=== PATIENT | female | born 1975 | race Hispanic/Latino ===

== ENCOUNTER 2020-11-16 09:19 | Outpatient (CLI) | payer SELFPAY ==
[2020-11-16 11:30] LABS: #Eosinphils 0.1 10x3/uL (0.0-0.5); #Monocytes 0.6 10x3/uL (0.0-1.1); #Neutrophils 5.8 10x3/uL (1.5-8.4); %Basophils 0.5 % (0.0-2.0); %Lymphocytes 21.1 % (18.0-47.0); %Monocytes 7.6 % (0.0-10.0); %Neutrophils 69.2 % (40.0-75.0); Hemoglobin 14.2 g/dL (12.0-15.5); Mean Corpuscular HGB CONC 34.5 g/dL (32.0-36.0); Mean Corpuscular Hemoglobin 32.8 pg (27.0-33.0); Mean Corpuscular Volume 95.2 fl (81.6-98.3); Mean Platelet Volume 10.8 fl (7.4-10.4); Platelet Count 248 10x3/uL (150-450); RBC Distribution Width 12.3 % (11.5-14.5); Red Blood Cell (RBC) Count 4.33 10x6/uL (3.90-5.03); White Blood Cell (WBC) Count 8.4 10x3/uL (3.5-10.5)
[2020-11-17 17:01] LABS: SARS-CoV-2 PCR by NAA Not Detected (NotDetected)
== END 2020-11-16 09:20 | disposition home or self-care (01) ==
LOC: LABBT 09:19
PROVIDERS: ATTEND Orthopaedic Surgery
DX: Z01.812 Encounter for preprocedural laboratory examination (principal); S83.241A Other tear of medial meniscus, current injury, right knee, initial encounter; Z20.822 Contact with and (suspected) exposure to COVID-19
CPT/HCPCS: 85025; U0003; U0005

== ENCOUNTER 2022-05-13 08:55 | Outpatient (CLI) | payer BC ==
[~2022-05-13 08:55] MED LIST: Iopamidol 370 76% 100 ML VIAL ONE
== END 2022-05-13 08:56 | disposition home or self-care (01) ==
LOC: CT 08:55
PROVIDERS: ATTEND Internal Medicine
DX: C79.51 Secondary malignant neoplasm of bone (principal); M48.061 Spinal stenosis, lumbar region without neurogenic claudication; I70.90 Unspecified atherosclerosis; G95.9 Disease of spinal cord, unspecified; Z90.89 Acquired absence of other organs
CPT/HCPCS: 71260; 74177; 78306; A9503; Q9967

== ENCOUNTER 2022-05-23 10:55 | Outpatient (CLI) | payer BC ==
[2022-05-23 11:59] LABS: Hemoglobin 13.8 g/dL (12.0-15.5); Mean Corpuscular HGB CONC 35.4 g/dL (32.0-36.0); Mean Corpuscular Hemoglobin 33.3 pg (27.0-33.0); Mean Platelet Volume 10.4 fl (7.4-10.4); Platelet Count 233 10x3/uL (150-450); RBC Distribution Width 12.1 % (11.5-14.5); Red Blood Cell (RBC) Count 4.15 10x6/uL (3.90-5.03); White Blood Cell (WBC) Count 7.6 10x3/uL (3.5-10.5)
[2022-05-23 12:29] LABS: Anion Gap 15 mmol/L (10-20); BUN (Urea Nitrogen) 13 mg/dL (7.0-18.7); Calc. Creatinine Clearance 0 mL/min (70-130); Carbon Dioxide 24 mmol/L (22-29); Chloride 99 mmol/L (98-107); Estimated GFR 87; Glucose 159 mg/dL (70-105); Potassium 3.9 mmol/L (3.5-5.1); Sodium 134 mmol/L (136-145)
== END 2022-05-23 10:56 | disposition home or self-care (01) ==
LOC: LABBT 10:55
PROVIDERS: ATTEND Neurological Surgery
DX: Z01.818 Encounter for other preprocedural examination (principal); M84.48XA Pathological fracture, other site, initial encounter for fracture
CPT/HCPCS: 80048; 85027; 93005; 93010

== ENCOUNTER 2022-05-26 08:39 | Inpatient (IN) | payer BC ==
[2022-05-23 12:03] VITALS: BMI 40.3
[2022-05-26 11:44] LABS: SARS-CoV-2 NAA Rapid Test Not Detected (NotDetected)
[2022-05-26] MEDS ORDERED: Morphine 2 MG/ML VIAL ONE ×2 (12:33→21:04)
[2022-05-26] MEDS ORDERED: Vancomycin 1 GM VIAL ONE (12:34)
[2022-05-26] MEDS ORDERED: fentaNYL PF 100 MCG/2 ML SYRINGE ONE (12:38)
[2022-05-26] MEDS ORDERED: Lidocaine 2% 6 ML SYR ONE (12:39)
[2022-05-26] MEDS ORDERED: CEFAZOLIN 2 GM VIAL ONE ×2 (12:44→22:03)
[2022-05-26] MEDS ORDERED: Sodium Chloride 0.9% 100 ML ONE ×2 (12:48→22:04)
[2022-05-26] MEDS ORDERED: NEOSTIGMINE 3 MG/3 ML SYR 3 MG/3 ML SYRINGE ONE (12:53)
[2022-05-26] MEDS ORDERED: Rocuronium Bromide 10 MG/ML (10ML VIAL) ONE (12:53)
[2022-05-26] MEDS ORDERED: Ondansetron PF 4 MG/2 ML Vial ONE ×2 (12:53→20:27)
[2022-05-26] MEDS ORDERED: Labetalol HCl 100 MG/20 ML VIAL ONE (12:53)
[2022-05-26] MEDS ORDERED: Glycopyrrolate 0.2 MG/ML 5 ML SYRINGE ONE (12:53)
[2022-05-26] MEDS ORDERED: PROPOFOL 200 MG/20 ML VIAL ONE (12:53)
[2022-05-26] MEDS ORDERED: Dexamethasone 20 MG/5 ML VIAL ONE (12:53)
[2022-05-26] MEDS ORDERED: HYDROmorphone 2 MG/ML VIAL ONE ×2 (13:27→14:25)
[2022-05-26] MEDS ORDERED: HYDROmorphone 2 MG/ML VIAL SLOW IVP PRN (14:05)
[2022-05-26] MEDS ORDERED: Ondansetron HCl/PF 4 MG/2 ML Vial IVP PRN (14:05)
[2022-05-26] MEDS ORDERED: Promethazine HCl 25 MG/ML VIAL IM PRN (14:05)
[2022-05-26] MEDS ORDERED: traMADol HCl 50 MG TAB PO PRN (14:29)
[2022-05-26] MEDS ORDERED: diphenhydrAMINE 25 MG CAP PO PRN (14:29)
[2022-05-26] MEDS ORDERED: Ondansetron PF 4 MG/2 ML Vial IVP PRN (14:29)
[2022-05-26] MEDS ORDERED: Promethazine 25 MG TAB PO PRN (14:29)
[2022-05-26] MEDS ORDERED: Acetaminophen 325 MG TAB PO PRN (14:29)
[2022-05-26] MEDS ORDERED: Milk Of Magnesia 30 ML UDCUP PO PRN (14:29)
[2022-05-26] MEDS ORDERED: Mag-Al 1200 mg/1200 mg/30 ML UDCUP PO PRN (14:29)
[2022-05-26] MEDS ORDERED: Cyclobenzaprine 10 MG TAB PO PRN (14:29)
[2022-05-26] MEDS ORDERED: Fentanyl 100 MCG/2 ML VIAL ONE (14:58)
[2022-05-26] MEDS: HYDROcodone/Acetaminophen 10/325 mg Tablet PO PRN (16:33)
[2022-05-26] MEDS ORDERED: HYDROcodone/Acetaminophen 10/325 mg Tablet ONE (16:35)
[2022-05-26] MEDS: Sodium Chloride 0.9% 1,000 ML IV SCH (16:57)
[2022-05-26] MEDS ORDERED: metFORMIN 500 MG TAB PO SCH (17:00)
[2022-05-26] MEDS: Morphine 2 MG/ML VIAL SLOW IVP PRN (21:02)
[2022-05-26] MEDS: CEFAZOLIN 2 GM in Sodium Chloride 0.9% 100 ML IVPB SCH (22:33)
[2022-05-27] MEDS ORDERED: HumaLOG 300 UNITS/3 ML VIAL SC PRN (00:27)
[2022-05-27] MEDS ORDERED: Dextrose 50% Abboject 50 ML SYRINGE SLOW IVP PRN (00:27)
[2022-05-27] MEDS ORDERED: Dextrose 5% in Water 1,000 ML IV PRN (00:27)
[2022-05-27] MEDS: Morphine 2 MG/ML VIAL SLOW IVP PRN ×3 (01:02→09:44)
[2022-05-27] MEDS ORDERED: Morphine 2 MG/ML VIAL ONE ×3 (01:03→09:40)
[2022-05-27] MEDS ORDERED: HYDROcodone/Acetaminophen 10/325 mg Tablet ONE ×2 (03:26→09:46)
[2022-05-27] MEDS: HYDROcodone/Acetaminophen 10/325 mg Tablet PO PRN ×3 (03:26→18:16)
[2022-05-27] MEDS ORDERED: CEFAZOLIN 2 GM VIAL ONE (04:10)
[2022-05-27] MEDS ORDERED: Sodium Chloride 0.9% 100 ML ONE (04:10)
[2022-05-27 04:43] LABS: #Lymphocytes 1.3 thou/uL (1.20-3.40); #Monocytes 0.9 thou/uL (0.11-0.59); #Neutrophils 11.4 thou/uL (1.40-6.50); %Basophils 0.1 % (0.0-1.0); %Eosinophils 0.1 % (0.0-10.0); %Lymphocytes 9.7 % (21.0-51.0); %Monocytes 6.7 % (0.0-10.0); %Neutrophils 83.4 % (42.0-75.0); Hemoglobin 12.3 g/dL (12.0-16.0); Mean Corpuscular HGB CONC 35.3 g/dL (32.0-36.0); Mean Corpuscular Hemoglobin 34.9 pg (27.0-31.0); Mean Platelet Volume 8.2 fL (7.4-10.4); Platelet Count 209 10x3/uL (130-400); RBC Distribution Width 11.7 % (11.5-14.5); Red Blood Cell (RBC) Count 3.53 mill/uL (4.20-5.40); White Blood Cell (WBC) Count 13.7 10x3/uL (4.8-10.8)
[2022-05-27 05:05] LABS: Anion Gap 13 mmol/L (10-20); BUN (Urea Nitrogen) 14 mg/dL (7.0-18.7); Calc. Creatinine Clearance 142 mL/min (70-130); Calcium 8.8 mg/dL (7.8-10.44); Carbon Dioxide 22 mmol/L (22-29); Chloride 101 mmol/L (98-107); Estimated GFR 89; Glucose 162 mg/dL (70-105); Potassium 4.1 mmol/L (3.5-5.1); Sodium 132 mmol/L (136-145)
[2022-05-27] MEDS: CEFAZOLIN 2 GM in Sodium Chloride 0.9% 100 ML IVPB SCH ×3 (05:14→22:27)
[2022-05-27] MEDS ORDERED: Insulin Regular 300 UNITS/3 ML VIAL ONE (05:24)
[2022-05-27] MEDS: HumaLOG 300 UNITS/3 ML VIAL SC PRN ×3 (06:00→18:16)
[2022-05-27] MEDS: Sodium Chloride 0.9% 1,000 ML IV SCH ×2 (07:12→19:05)
[2022-05-27] MEDS ORDERED: Cyclobenzaprine 10 MG TAB ONE (08:05)
[2022-05-27] MEDS: Lisinopril/Hydrochlorothiazide 10 mg/12.5 mg Tablet PO SCH (08:20)
[2022-05-27] MEDS: Sertraline 100 MG TAB PO SCH (08:21)
[2022-05-28] MEDS: Sodium Chloride 0.9% 1,000 ML IV SCH ×2 (04:57→22:47)
[2022-05-28] MEDS: CEFAZOLIN 2 GM in Sodium Chloride 0.9% 100 ML IVPB SCH ×3 (04:58→22:39)
[2022-05-28] MEDS: HYDROcodone/Acetaminophen 10/325 mg Tablet PO PRN ×3 (07:35→18:47)
[2022-05-28 07:40] LABS: #Basophils 0.1 thou/uL (0.0-0.2); #Eosinphils 0.2 thou/uL (0.0-0.7); #Lymphocytes 3.7 thou/uL (1.20-3.40); #Neutrophils 6.3 thou/uL (1.40-6.50); %Basophils 0.5 % (0.0-1.0); %Eosinophils 1.7 % (0.0-10.0); %Lymphocytes 32.7 % (21.0-51.0); %Monocytes 9.2 % (0.0-10.0); %Neutrophils 55.9 % (42.0-75.0); Hemoglobin 12.8 g/dL (12.0-16.0); Mean Corpuscular HGB CONC 34.2 g/dL (32.0-36.0); Mean Corpuscular Hemoglobin 34.4 pg (27.0-31.0); Mean Platelet Volume 8.2 fL (7.4-10.4); Platelet Count 217 10x3/uL (130-400); RBC Distribution Width 11.8 % (11.5-14.5); Red Blood Cell (RBC) Count 3.71 mill/uL (4.20-5.40); White Blood Cell (WBC) Count 11.2 10x3/uL (4.8-10.8)
[2022-05-28 07:50] LABS: Anion Gap 13 mmol/L (10-20); BUN (Urea Nitrogen) 9 mg/dL (7.0-18.7); Calc. Creatinine Clearance 151 mL/min (70-130); Calcium 8.8 mg/dL (7.8-10.44); Carbon Dioxide 23 mmol/L (22-29); Chloride 102 mmol/L (98-107); Estimated GFR 97; Glucose 146 mg/dL (70-105); Magnesium 1.7 mg/dL (1.6-2.6); Potassium 4.1 mmol/L (3.5-5.1); Sodium 134 mmol/L (136-145)
[2022-05-28] MEDS: Sertraline 100 MG TAB PO SCH (09:40)
[2022-05-28] MEDS: Lisinopril/Hydrochlorothiazide 10 mg/12.5 mg Tablet PO SCH (09:42)
[2022-05-28] MEDS: Morphine 2 MG/ML VIAL SLOW IVP PRN (09:48)
[2022-05-28] MEDS ORDERED: Fioricet 325/50/40 mg Tablet PO PRN (09:50)
[2022-05-29] MEDS: HYDROcodone/Acetaminophen 10/325 mg Tablet PO PRN ×2 (03:09→08:36)
[2022-05-29] MEDS: CEFAZOLIN 2 GM in Sodium Chloride 0.9% 100 ML IVPB SCH (05:26)
[2022-05-29] MEDS ORDERED: Polyethylene Glycol 3350 17 GM Packet PO PRN (08:26)
[2022-05-29] MEDS ORDERED: Bisacodyl 10 MG SUPP PR SCH (08:30)
[2022-05-29] MEDS: Sertraline 100 MG TAB PO SCH (08:37)
[2022-05-29] MEDS: Lisinopril/Hydrochlorothiazide 10 mg/12.5 mg Tablet PO SCH (08:37)
[2022-05-29] MEDS ORDERED: Polyethylene Glycol 3350 17 GM Packet PO SCH (09:00)
[2022-05-29 09:12] VITALS: TEMP 97.7
[2022-05-29 13:48] VITALS: BP 92/60
== END 2022-05-29 14:02 | disposition home or self-care (01) | DRG 517 ==
LOC: SDC 08:39 → EDSTATUS 11:00 → PACU-TCU 05-27 01:37 → SURG A 05-27 12:13
PROVIDERS: ADMIT Neurological Surgery; ATTEND Neurological Surgery
PROC: 01NB0ZZ Release Lumbar Nerve, Open Approach (ICD-10-PCS; principal; 2022-05-26)
DX: D49.2 Neoplasm of unspecified behavior of bone, soft tissue, and skin (principal); Z20.822 Contact with and (suspected) exposure to COVID-19; I10 Essential (primary) hypertension; F10.10 Alcohol abuse, uncomplicated; E11.9 Type 2 diabetes mellitus without complications; R33.9 Retention of urine, unspecified; Z79.84 Long term (current) use of oral hypoglycemic drugs; Z79.899 Other long term (current) drug therapy
CPT/HCPCS: 36415; 36416; 80048; 83735; 85025; 88305; 88341; 88342; C1713; C1776; J1100; J1170; J1815; J2272; J2405; J2704; J3010; J3370; J3490; U0002

== ENCOUNTER 2022-06-06 18:54 | Emergency (ER) | payer BC ==
[2022-06-06 21:29] LABS: Bacteria/HPF None Seen HPF (None Seen); Bilirubin Negative (Negative); Blood, Urine 3+ (Negative); Clarity Turbid (Clear); Glucose, Urine (Dipstick) Normal (Negative); Ketone, Urine Negative (Negative); Leukocyte 500 Leu/uL (Negative); Nitrite 1+ (Negative); Protein, Urine (Dipstick) 30 mg/dL (Neg-Trace); Specific Gravity, Urine 1.004 (1.002-1.036); Squamous Epithelial 0-3 HPF (0-3); Transitional Epithelial 0-3 HPF (None Seen); Urobilinogen Normal mg/dL (Less than 2); WBC/HPF Greater than 50 HPF (0-3); pH, Urine 6.5 (5.0-9.0)
[2022-06-06 22:07] LABS: INR-International Normal Ratio 1.1; PTT 30.3 sec (22.9-36.1); Prothrombin Time 14.4 sec (12.0-14.7)
[2022-06-06] MEDS ORDERED: Lidocaine 1% PF 5 ML VIAL ONE (22:07)
[2022-06-06] MEDS ORDERED: cefTRIAXone\\ROCEPHIN 1 GM VIAL ONE (22:07)
[2022-06-06 22:13] LABS: #Basophils 0.1 thou/uL (0.0-0.2); #Eosinphils 0.5 thou/uL (0.0-0.7); #Lymphocytes 2.9 thou/uL (1.20-3.40); #Monocytes 0.9 thou/uL (0.11-0.59); #Neutrophils 8.7 thou/uL (1.40-6.50); %Basophils 0.6 % (0.0-1.0); %Eosinophils 3.5 % (0.0-10.0); %Lymphocytes 21.9 % (21.0-51.0); %Monocytes 7.2 % (0.0-10.0); %Neutrophils 66.8 % (42.0-75.0); Hemoglobin 13.7 g/dL (12.0-16.0); Mean Corpuscular HGB CONC 35.5 g/dL (32.0-36.0); Mean Corpuscular Hemoglobin 34.5 pg (27.0-31.0); Mean Corpuscular Volume 97.1 fl (78.0-98.0); Mean Platelet Volume 7.9 fL (7.4-10.4); Platelet Count 353 10x3/uL (130-400); RBC Distribution Width 11.4 % (11.5-14.5); Red Blood Cell (RBC) Count 3.96 mill/uL (4.20-5.40)
[2022-06-06 22:15] LABS: ALT (SGPT) 49 U/L (8-55); AST (SGOT) 54 U/L (5-34); Albumin 4.2 g/dL (3.5-5.0); Alkaline Phosphatase 84 U/L (40-110); Anion Gap 13 mmol/L (10-20); BUN (Urea Nitrogen) 11 mg/dL (7.0-18.7); Bilirubin, Total 0.6 mg/dL (0.2-1.2); Calc. Creatinine Clearance 0 mL/min (70-130); Calcium 10.3 mg/dL (7.8-10.44); Carbon Dioxide 26 mmol/L (22-29); Chloride 98 mmol/L (98-107); Estimated GFR 80; Globulin 4.2 g/dL (2.4-3.5); Glucose 134 mg/dL (70-105); Lipase 14 U/L (8-78); Potassium 3.9 mmol/L (3.5-5.1); Protein, Total 8.4 g/dL (6.0-8.3); Sodium 133 mmol/L (136-145)
== END 2022-06-06 23:02 | disposition home or self-care (01) ==
LOC: ERS 18:54
DX: N39.0 Urinary tract infection, site not specified (principal); I10 Essential (primary) hypertension; F17.210 Nicotine dependence, cigarettes, uncomplicated
CPT/HCPCS: 36415; 80053; 81003; 81015; 83605; 83690; 85025; 85610; 85730; 96372; 99283; J0696

== ENCOUNTER 2022-06-19 14:52 | Inpatient (IN) | payer BC ==
[2022-06-19] MEDS ORDERED: Ondansetron PF 4 MG/2 ML Vial SLOW IVP PRN (16:19)
[2022-06-19] MEDS ORDERED: diphenhydrAMINE 25 MG CAP PO PRN (16:30)
[2022-06-19] MEDS ORDERED: Promethazine HCl 12.5 MG SUPP PR PRN (16:30)
[2022-06-19] MEDS ORDERED: Milk Of Magnesia 30 ML UDCUP PO PRN (16:30)
[2022-06-19] MEDS ORDERED: diphenhydrAMINE 50 MG/ML VIAL IVP PRN (16:30)
[2022-06-19] MEDS ORDERED: HYDROcodone/Acetaminophen 10/325 mg Tablet PO PRN (16:30)
[2022-06-19] MEDS ORDERED: Morphine 2 MG/ML VIAL SLOW IVP PRN (16:30)
[2022-06-19] MEDS ORDERED: Promethazine HCl 25 MG/ML VIAL IM PRN (16:30)
[2022-06-19] MEDS ORDERED: Morphine 4 MG/ML VIAL SLOW IVP PRN (16:30)
[2022-06-19] MEDS ORDERED: Promethazine 25 MG TAB PO PRN (16:30)
[2022-06-19] MEDS ORDERED: traMADol HCl 50 MG TAB PO PRN (16:30)
[2022-06-19] MEDS: HYDROcodone/Acetaminophen 10/325 mg Tablet PO PRN ×2 (17:17→21:53)
[2022-06-19 17:20] VITALS: BMI 40.3
[2022-06-19 17:22] LABS: #Basophils 0.1 thou/uL (0.0-0.2); #Eosinphils 0.5 thou/uL (0.0-0.7); #Lymphocytes 2.6 thou/uL (1.20-3.40); #Monocytes 0.6 thou/uL (0.11-0.59); #Neutrophils 2.4 thou/uL (1.40-6.50); %Basophils 1.5 % (0.0-1.0); %Eosinophils 7.4 % (0.0-10.0); %Lymphocytes 42.3 % (21.0-51.0); %Monocytes 10.1 % (0.0-10.0); %Neutrophils 38.7 % (42.0-75.0); Hemoglobin 13.2 g/dL (12.0-16.0); Mean Corpuscular HGB CONC 35.3 g/dL (32.0-36.0); Mean Corpuscular Hemoglobin 34.2 pg (27.0-31.0); Mean Corpuscular Volume 96.9 fl (78.0-98.0); Mean Platelet Volume 8.5 fL (7.4-10.4); Platelet Count 237 10x3/uL (130-400); Red Blood Cell (RBC) Count 3.86 mill/uL (4.20-5.40); White Blood Cell (WBC) Count 6.2 10x3/uL (4.8-10.8)
[2022-06-19 17:33] LABS: INR-International Normal Ratio 1.1; Prothrombin Time 14.4 sec (12.0-14.7)
[2022-06-19 17:41] LABS: Anion Gap 11 mmol/L (10-20); BUN (Urea Nitrogen) 14 mg/dL (7.0-18.7); Calc. Creatinine Clearance 127 mL/min (70-130); Calcium 10.3 mg/dL (7.8-10.44); Carbon Dioxide 26 mmol/L (22-29); Chloride 100 mmol/L (98-107); Estimated GFR 78; Glucose 132 mg/dL (70-105); Potassium 4.3 mmol/L (3.5-5.1); Sodium 133 mmol/L (136-145)
[2022-06-19] MEDS ORDERED: Dextrose 50% Abboject 50 ML SYRINGE SLOW IVP PRN (17:46)
[2022-06-19] MEDS ORDERED: HumaLOG 300 UNITS/3 ML VIAL SC PRN (17:46)
[2022-06-19] MEDS ORDERED: Dextrose 5% in Water 1,000 ML IV PRN (17:46)
[2022-06-19] MEDS ORDERED: Sodium Chloride 0.9% 1,000 ML IV SCH (18:00)
[2022-06-19] MEDS: CEFAZOLIN 2 GM in Sodium Chloride 0.9% 100 ML IVPB SCH (21:24)
[2022-06-19] MEDS: Doxazosin 2 MG TAB PO SCH (21:29)
[2022-06-20] MEDS: Morphine 2 MG/ML VIAL SLOW IVP PRN ×2 (04:40→09:44)
[2022-06-20 05:08] LABS: SARS-CoV-2 NAA Rapid Test Not Detected (NotDetected)
[2022-06-20] MEDS: CEFAZOLIN 2 GM in Sodium Chloride 0.9% 100 ML IVPB SCH (05:43)
[2022-06-20] MEDS: Lisinopril/Hydrochlorothiazide 10 mg/12.5 mg Tablet PO SCH (08:13)
[2022-06-20] MEDS: metFORMIN 500 MG TAB PO SCH (08:50)
[2022-06-20] MEDS ORDERED: Doxazosin 2 MG TAB PO SCH (09:00)
[2022-06-20] MEDS ORDERED: Iopamidol-M 200 41% 10 ML VIAL FS ONE (09:07)
[2022-06-20] MEDS: traMADol HCl 50 MG TAB PO PRN (10:02)
[2022-06-20] MEDS: Sertraline 100 MG TAB PO SCH (10:14)
[2022-06-20] MEDS: Cefepime 2 GM in Sodium Chloride 0.9% 100 ML IVPB SCH ×2 (11:03→22:18)
[2022-06-20] MEDS: HYDROcodone/Acetaminophen 10/325 mg Tablet PO PRN ×3 (12:02→23:19)
[2022-06-20] MEDS: Gabapentin 300 MG CAP PO SCH ×2 (13:27→20:00)
[2022-06-20] MEDS: HumaLOG 300 UNITS/3 ML VIAL SC PRN (13:30)
[2022-06-20] MEDS: Doxazosin 2 MG TAB PO SCH (19:59)
[2022-06-20] MEDS: Cyclobenzaprine 10 MG TAB PO PRN (22:21)
[2022-06-21] MEDS: HYDROcodone/Acetaminophen 10/325 mg Tablet PO PRN ×2 (06:17→20:14)
[2022-06-21] MEDS: HumaLOG 300 UNITS/3 ML VIAL SC PRN (06:18)
[2022-06-21] MEDS: Gabapentin 300 MG CAP PO SCH ×3 (07:54→20:25)
[2022-06-21] MEDS: Folic Acid 1 MG TAB PO SCH (07:54)
[2022-06-21] MEDS: metFORMIN 500 MG TAB PO SCH (07:55)
[2022-06-21] MEDS: Sertraline 100 MG TAB PO SCH (07:55)
[2022-06-21] MEDS ORDERED: Morphine 4 MG/ML VIAL SLOW IVP SCH (09:00)
[2022-06-21] MEDS: Thiamine 100 MG TAB PO SCH (09:13)
[2022-06-21] MEDS: Lisinopril/Hydrochlorothiazide 10 mg/12.5 mg Tablet PO SCH (09:13)
[2022-06-21] MEDS: Lidocaine 1% (PF) 30 ML VIAL ONE ×2 (09:24→11:00)
[2022-06-21] MEDS: Cefepime 2 GM in Sodium Chloride 0.9% 100 ML IVPB SCH ×2 (09:26→23:20)
[2022-06-21] MEDS: traMADol HCl 50 MG TAB PO PRN (14:59)
[2022-06-21] MEDS: Morphine 2 MG/ML VIAL SLOW IVP PRN (16:34)
[2022-06-21] MEDS: Cyclobenzaprine 10 MG TAB PO PRN (16:35)
[2022-06-21] MEDS: Docusate 100 MG CAP PO SCH (20:14)
[2022-06-21] MEDS: Doxazosin 2 MG TAB PO SCH (20:56)
[2022-06-22] MEDS: HYDROcodone/Acetaminophen 10/325 mg Tablet PO PRN ×4 (05:48→20:36)
[2022-06-22] MEDS: HumaLOG 300 UNITS/3 ML VIAL SC PRN ×2 (05:54→17:32)
[2022-06-22] MEDS: Gabapentin 300 MG CAP PO SCH ×3 (10:53→20:37)
[2022-06-22] MEDS: Docusate 100 MG CAP PO SCH ×2 (10:53→20:36)
[2022-06-22] MEDS: Lisinopril/Hydrochlorothiazide 10 mg/12.5 mg Tablet PO SCH (10:54)
[2022-06-22] MEDS: Sertraline 100 MG TAB PO SCH (10:54)
[2022-06-22] MEDS: Folic Acid 1 MG TAB PO SCH (10:54)
[2022-06-22] MEDS: Thiamine 100 MG TAB PO SCH (10:54)
[2022-06-22] MEDS: metFORMIN 500 MG TAB PO SCH (11:00)
[2022-06-22] MEDS: Cyclobenzaprine 10 MG TAB PO PRN (11:00)
[2022-06-22] MEDS: Cefepime 2 GM in Sodium Chloride 0.9% 100 ML IVPB SCH ×2 (11:09→23:09)
[2022-06-22] MEDS: Doxazosin 2 MG TAB PO SCH ×2 (20:39→20:41)
[2022-06-22] MEDS ORDERED: Phenylephrine 10 MG/ML VIAL ONE (23:04)
[2022-06-22] MEDS: Mag-Al 1200 mg/1200 mg/30 ML UDCUP PO PRN (23:08)
[2022-06-23] MEDS ORDERED: fentaNYL PF 100 MCG/2 ML SYRINGE ONE (07:46)
[2022-06-23] MEDS ORDERED: MINERAL OIL/WHITE PETROLATUM 3.5 GM TUBE ONE (07:46)
[2022-06-23] MEDS ORDERED: HYDROmorphone 2 MG/ML VIAL ONE (07:46)
[2022-06-23] MEDS ORDERED: SUGAMMADEX SODIUM 200 MG/2 ML VIAL ONE (07:46)
[2022-06-23] MEDS ORDERED: Vancomycin 1 GM VIAL ONE (07:49)
[2022-06-23] MEDS ORDERED: Sodium Chloride 0.9% 100 ML ONE (07:59)
[2022-06-23] MEDS ORDERED: CEFAZOLIN 2 GM VIAL ONE (07:59)
[2022-06-23] MEDS ORDERED: niCARdipine 25 MG/10 ML VIAL ONE (08:10)
[2022-06-23] MEDS ORDERED: Rocuronium Bromide 10 MG/ML (10ML VIAL) ONE (08:15)
[2022-06-23] MEDS ORDERED: Lidocaine 1% PF 5 ML VIAL ONE (08:15)
[2022-06-23] MEDS ORDERED: Ondansetron PF 4 MG/2 ML Vial ONE (08:15)
[2022-06-23] MEDS ORDERED: Dexamethasone 20 MG/5 ML VIAL ONE (08:15)
[2022-06-23] MEDS ORDERED: PROPOFOL 200 MG/20 ML VIAL ONE (08:15)
[2022-06-23] MEDS ORDERED: PHENYLEPHRINE-NS 100 MCG/ML 10 ML SYRINGE ONE (08:15)
[2022-06-23] MEDS ORDERED: Norepinephrine 4 MG/4 ML VIAL ONE (08:28)
[2022-06-23] MEDS ORDERED: CEFAZOLIN 2 GM in Sodium Chloride 0.9% 100 ML IVPB SCH (09:00)
[2022-06-23] MEDS ORDERED: HYDROmorphone 2 MG/ML VIAL SLOW IVP PRN (09:08)
[2022-06-23] MEDS ORDERED: Ondansetron HCl/PF 4 MG/2 ML Vial IVP PRN (09:08)
[2022-06-23] MEDS ORDERED: HYDROmorphone 0.5 MG/0.5 ML SYRINGE ONE ×4 (10:11→10:41)
[2022-06-23] MEDS ORDERED: Fentanyl 100 MCG/2 ML VIAL ONE ×2 (10:33→11:12)
[2022-06-23] MEDS: Cefepime 2 GM in Sodium Chloride 0.9% 100 ML IVPB SCH ×2 (11:16→23:00)
[2022-06-23] MEDS: Lisinopril/Hydrochlorothiazide 10 mg/12.5 mg Tablet PO SCH (12:28)
[2022-06-23] MEDS: metFORMIN 500 MG TAB PO SCH (12:29)
[2022-06-23] MEDS: Sertraline 100 MG TAB PO SCH (12:29)
[2022-06-23] MEDS: Thiamine 100 MG TAB PO SCH (12:29)
[2022-06-23] MEDS: Folic Acid 1 MG TAB PO SCH (12:29)
[2022-06-23] MEDS: Gabapentin 300 MG CAP PO SCH ×3 (12:29→20:03)
[2022-06-23] MEDS: Docusate 100 MG CAP PO SCH ×2 (12:29→20:03)
[2022-06-23] MEDS: Morphine 2 MG/ML VIAL SLOW IVP PRN (13:38)
[2022-06-23] MEDS ORDERED: Propofol 1,000 MG/100 ML VIAL IV ONE (14:39)
[2022-06-23] MEDS: HYDROcodone/Acetaminophen 10/325 mg Tablet PO PRN ×2 (16:01→20:04)
[2022-06-23] MEDS: HumaLOG 300 UNITS/3 ML VIAL SC PRN (17:48)
[2022-06-23] MEDS ORDERED: Sodium Chloride 0.9% 500 ML IV SCH (18:00)
[2022-06-23] MEDS: Sodium Chloride 0.9% 1,000 ML IV SCH (18:16)
[2022-06-23] MEDS ORDERED: Metoprolol Tartrate 5 MG/5 ML VIAL IVP SCH (19:15)
[2022-06-23] MEDS: Doxazosin 2 MG TAB PO SCH (20:03)
[2022-06-24] MEDS: HYDROcodone/Acetaminophen 10/325 mg Tablet PO PRN ×5 (04:40→20:47)
[2022-06-24] MEDS: Sodium Chloride 0.9% 1,000 ML IV SCH ×2 (04:42→20:47)
[2022-06-24] MEDS: Lisinopril/Hydrochlorothiazide 10 mg/12.5 mg Tablet PO SCH (08:13)
[2022-06-24] MEDS: Folic Acid 1 MG TAB PO SCH (08:14)
[2022-06-24] MEDS: Docusate 100 MG CAP PO SCH ×2 (08:14→20:46)
[2022-06-24] MEDS: metFORMIN 500 MG TAB PO SCH (08:14)
[2022-06-24] MEDS: Thiamine 100 MG TAB PO SCH (08:14)
[2022-06-24] MEDS: Sertraline 100 MG TAB PO SCH (08:14)
[2022-06-24] MEDS: Gabapentin 300 MG CAP PO SCH ×3 (08:15→20:46)
[2022-06-24 09:31] LABS: Mean Corpuscular Hemoglobin 33.6 pg (27.0-31.0); Mean Corpuscular Volume 98.9 fl (78.0-98.0); Mean Platelet Volume 8.5 fL (7.4-10.4); Platelet Count 220 10x3/uL (130-400); Red Blood Cell (RBC) Count 3.58 mill/uL (4.20-5.40); White Blood Cell (WBC) Count 11.1 10x3/uL (4.8-10.8)
[2022-06-24 09:56] LABS: BUN (Urea Nitrogen) 16 mg/dL (7.0-18.7); Calc. Creatinine Clearance 166 mL/min (70-130); Calcium 9.5 mg/dL (7.8-10.44); Carbon Dioxide 22 mmol/L (22-29); Chloride 102 mmol/L (98-107); Estimated GFR 105; Glucose 156 mg/dL (70-105); Magnesium 1.7 mg/dL (1.6-2.6); Sodium 134 mmol/L (136-145)
[2022-06-24 10:00] LABS: Anion Gap 14 mmol/L (10-20)
[2022-06-24] MEDS ORDERED: Calcium Carbonate 500 MG ChewTAB PO PRN (11:22)
[2022-06-24] MEDS ORDERED: Pantoprazole 40 MG VIAL IVP SCH (11:30)
[2022-06-24] MEDS: Cefepime 2 GM in Sodium Chloride 0.9% 100 ML IVPB SCH ×2 (11:30→22:43)
[2022-06-24] MEDS: Morphine 2 MG/ML VIAL SLOW IVP PRN (19:19)
[2022-06-24] MEDS: Famotidine 20 MG TAB PO SCH (20:46)
[2022-06-24] MEDS: Doxazosin 2 MG TAB PO SCH (20:47)
[2022-06-25] MEDS: HYDROcodone/Acetaminophen 10/325 mg Tablet PO PRN ×5 (01:35→20:40)
[2022-06-25] MEDS: Famotidine 20 MG TAB PO SCH ×2 (08:20→20:40)
[2022-06-25] MEDS: Thiamine 100 MG TAB PO SCH (08:20)
[2022-06-25] MEDS: Lisinopril/Hydrochlorothiazide 10 mg/12.5 mg Tablet PO SCH (08:20)
[2022-06-25] MEDS: Gabapentin 300 MG CAP PO SCH ×3 (08:20→20:40)
[2022-06-25] MEDS: Folic Acid 1 MG TAB PO SCH (08:20)
[2022-06-25] MEDS: Sertraline 100 MG TAB PO SCH (08:21)
[2022-06-25] MEDS: Docusate 100 MG CAP PO SCH ×2 (08:21→20:40)
[2022-06-25] MEDS: metFORMIN 500 MG TAB PO SCH (08:21)
[2022-06-25] MEDS: Sodium Chloride 0.9% 1,000 ML IV SCH ×2 (12:31→23:07)
[2022-06-25] MEDS: Cefepime 2 GM in Sodium Chloride 0.9% 100 ML IVPB SCH ×2 (12:31→23:08)
[2022-06-25] MEDS: Cyclobenzaprine 10 MG TAB PO PRN (19:28)
[2022-06-25] MEDS: Morphine 2 MG/ML VIAL SLOW IVP PRN (20:08)
[2022-06-26] MEDS: Morphine 2 MG/ML VIAL SLOW IVP PRN (00:13)
[2022-06-26] MEDS: HYDROcodone/Acetaminophen 10/325 mg Tablet PO PRN ×5 (02:04→19:28)
[2022-06-26] MEDS: Cyclobenzaprine 10 MG TAB PO PRN (06:05)
[2022-06-26] MEDS: Thiamine 100 MG TAB PO SCH (09:20)
[2022-06-26] MEDS: Folic Acid 1 MG TAB PO SCH (09:20)
[2022-06-26] MEDS: Famotidine 20 MG TAB PO SCH ×2 (09:20→19:32)
[2022-06-26] MEDS: Lisinopril/Hydrochlorothiazide 10 mg/12.5 mg Tablet PO SCH (09:20)
[2022-06-26] MEDS: metFORMIN 500 MG TAB PO SCH (09:20)
[2022-06-26] MEDS: Sertraline 100 MG TAB PO SCH (09:20)
[2022-06-26] MEDS: Docusate 100 MG CAP PO SCH ×2 (09:20→19:32)
[2022-06-26] MEDS: Pregabalin 75 MG CAP PO SCH ×2 (09:21→19:31)
[2022-06-26] MEDS: Cefepime 2 GM in Sodium Chloride 0.9% 100 ML IVPB SCH ×2 (10:21→22:33)
[2022-06-26] MEDS: Sodium Chloride 0.9% 1,000 ML IV SCH (14:25)
[2022-06-26] MEDS: Doxazosin 2 MG TAB PO SCH (19:32)
[2022-06-27] MEDS: HYDROcodone/Acetaminophen 10/325 mg Tablet PO PRN ×5 (00:42→21:25)
[2022-06-27] MEDS: Sodium Chloride 0.9% 1,000 ML IV SCH ×2 (04:15→17:26)
[2022-06-27] MEDS: Thiamine 100 MG TAB PO SCH (08:33)
[2022-06-27] MEDS: Folic Acid 1 MG TAB PO SCH (08:33)
[2022-06-27] MEDS: Docusate 100 MG CAP PO SCH ×2 (08:33→21:19)
[2022-06-27] MEDS: Sertraline 100 MG TAB PO SCH (08:33)
[2022-06-27] MEDS: metFORMIN 500 MG TAB PO SCH (08:33)
[2022-06-27] MEDS: Famotidine 20 MG TAB PO SCH ×2 (08:33→21:20)
[2022-06-27] MEDS: Pregabalin 75 MG CAP PO SCH ×2 (08:33→21:19)
[2022-06-27] MEDS: Lisinopril/Hydrochlorothiazide 10 mg/12.5 mg Tablet PO SCH (08:34)
[2022-06-27] MEDS: Cefepime 2 GM in Sodium Chloride 0.9% 100 ML IVPB SCH ×2 (09:58→23:09)
[2022-06-27 16:36] LABS: Hemoglobin A1c 6.3 % (4.0-6.0)
[2022-06-27] MEDS: Doxazosin 2 MG TAB PO SCH (21:20)
[2022-06-28] MEDS: Sodium Chloride 0.9% 1,000 ML IV SCH ×3 (01:06→21:44)
[2022-06-28] MEDS: HYDROcodone/Acetaminophen 10/325 mg Tablet PO PRN ×4 (01:06→21:44)
[2022-06-28] MEDS: Pregabalin 75 MG CAP PO SCH ×2 (08:17→21:45)
[2022-06-28] MEDS: Sertraline 100 MG TAB PO SCH (08:17)
[2022-06-28] MEDS: Folic Acid 1 MG TAB PO SCH (08:17)
[2022-06-28] MEDS: Famotidine 20 MG TAB PO SCH ×2 (08:17→21:45)
[2022-06-28] MEDS: Thiamine 100 MG TAB PO SCH (08:17)
[2022-06-28] MEDS: metFORMIN 500 MG TAB PO SCH (08:17)
[2022-06-28] MEDS: Docusate 100 MG CAP PO SCH ×2 (08:17→21:45)
[2022-06-28] MEDS: Lisinopril/Hydrochlorothiazide 10 mg/12.5 mg Tablet PO SCH (08:18)
[2022-06-28] MEDS: Cefepime 2 GM in Sodium Chloride 0.9% 100 ML IVPB SCH ×2 (11:11→21:44)
[2022-06-28] MEDS: Cyclobenzaprine 10 MG TAB PO PRN ×2 (11:12→21:59)
[2022-06-28] MEDS: Doxazosin 2 MG TAB PO SCH (22:48)
[2022-06-29] MEDS: Mag-Al 1200 mg/1200 mg/30 ML UDCUP PO PRN (05:33)
[2022-06-29] MEDS: Famotidine 20 MG TAB PO SCH ×2 (08:37→20:17)
[2022-06-29] MEDS: Pregabalin 75 MG CAP PO SCH ×2 (08:37→20:17)
[2022-06-29] MEDS: Lisinopril/Hydrochlorothiazide 10 mg/12.5 mg Tablet PO SCH (08:37)
[2022-06-29] MEDS: metFORMIN 500 MG TAB PO SCH (08:37)
[2022-06-29] MEDS: Sertraline 100 MG TAB PO SCH (08:37)
[2022-06-29] MEDS: Docusate 100 MG CAP PO SCH ×2 (08:37→20:17)
[2022-06-29] MEDS: Thiamine 100 MG TAB PO SCH (08:38)
[2022-06-29] MEDS: Folic Acid 1 MG TAB PO SCH (08:38)
[2022-06-29] MEDS: Cefepime 2 GM in Sodium Chloride 0.9% 100 ML IVPB SCH ×2 (10:10→21:35)
[2022-06-29] MEDS: HYDROcodone/Acetaminophen 10/325 mg Tablet PO PRN ×2 (10:10→20:18)
[2022-06-29] MEDS: Doxazosin 2 MG TAB PO SCH (20:17)
[2022-06-29] MEDS: Cyclobenzaprine 10 MG TAB PO PRN (21:38)
[2022-06-30 04:41] LABS: #Basophils 0.1 thou/uL (0.0-0.2); #Eosinphils 0.3 thou/uL (0.0-0.7); #Lymphocytes 2.9 thou/uL (1.20-3.40); #Monocytes 0.7 thou/uL (0.11-0.59); #Neutrophils 2.9 thou/uL (1.40-6.50); %Basophils 0.8 % (0.0-1.0); %Eosinophils 4.5 % (0.0-10.0); %Lymphocytes 42.3 % (21.0-51.0); %Monocytes 10.2 % (0.0-10.0); %Neutrophils 42.3 % (42.0-75.0); Hemoglobin 12.7 g/dL (12.0-16.0); Mean Corpuscular HGB CONC 34.7 g/dL (32.0-36.0); Mean Corpuscular Hemoglobin 33.8 pg (27.0-31.0); Mean Corpuscular Volume 97.6 fl (78.0-98.0); Mean Platelet Volume 8.3 fL (7.4-10.4); Platelet Count 224 10x3/uL (130-400); RBC Distribution Width 11.1 % (11.5-14.5); Red Blood Cell (RBC) Count 3.76 mill/uL (4.20-5.40); White Blood Cell (WBC) Count 6.9 10x3/uL (4.8-10.8)
[2022-06-30 05:00] LABS: Anion Gap 14 mmol/L (10-20); BUN (Urea Nitrogen) 16 mg/dL (7.0-18.7); Calc. Creatinine Clearance 164 mL/min (70-130); Calcium 9.9 mg/dL (7.8-10.44); Carbon Dioxide 23 mmol/L (22-29); Chloride 102 mmol/L (98-107); Estimated GFR 103; Glucose 148 mg/dL (70-105); Sodium 135 mmol/L (136-145)
[2022-06-30 07:13] VITALS: TEMP 97.5
[2022-06-30] MEDS: Sertraline 100 MG TAB PO SCH (08:45)
[2022-06-30] MEDS: Folic Acid 1 MG TAB PO SCH (08:45)
[2022-06-30] MEDS: Docusate 100 MG CAP PO SCH (08:45)
[2022-06-30] MEDS: Famotidine 20 MG TAB PO SCH (08:45)
[2022-06-30] MEDS: Thiamine 100 MG TAB PO SCH (08:45)
[2022-06-30] MEDS: Lisinopril/Hydrochlorothiazide 10 mg/12.5 mg Tablet PO SCH (08:45)
[2022-06-30] MEDS: HYDROcodone/Acetaminophen 10/325 mg Tablet PO PRN (08:46)
[2022-06-30] MEDS: Pregabalin 75 MG CAP PO SCH (08:46)
[2022-06-30] MEDS: metFORMIN 500 MG TAB PO SCH (08:46)
[2022-06-30 08:47] VITALS: BP 130/88
== END 2022-06-30 13:36 | disposition home or self-care (01) | DRG 92 ==
LOC: SURG B 15:37 → CCU 06-20 09:53 → IMCU/EMU 06-20 12:00
PROVIDERS: ADMIT Neurological Surgery; ATTEND Neurological Surgery
PROC: 009U30Z Drainage of Spinal Canal with Drainage Device, Percutaneous Approach (ICD-10-PCS; 2022-06-19)
PROC: B01BZZZ Fluoroscopy of Spinal Cord (ICD-10-PCS; 2022-06-19)
PROC: 0S9 Lower Joints, Drainage (ICD-10-PCS; 2022-06-19)
PROC: 0HQ6XZZ Repair Back Skin, External Approach (ICD-10-PCS; 2022-06-19)
PROC: 009U3ZZ Drainage of Spinal Canal, Percutaneous Approach (ICD-10-PCS; principal; 2022-06-20)
PROC: B01BZZZ Fluoroscopy of Spinal Cord (ICD-10-PCS; 2022-06-20)
DX: G96.09 Other spinal cerebrospinal fluid leak (principal); C74.10 Malignant neoplasm of medulla of unspecified adrenal gland; C79.51 Secondary malignant neoplasm of bone; G97.82 Other postprocedural complications and disorders of nervous system; N39.0 Urinary tract infection, site not specified; Z20.822 Contact with and (suspected) exposure to COVID-19; I10 Essential (primary) hypertension; F17.210 Nicotine dependence, cigarettes, uncomplicated; E78.5 Hyperlipidemia, unspecified; F10.10 Alcohol abuse, uncomplicated; G96.198 Other disorders of meninges, not elsewhere classified; Y83.8 Other surgical procedures as the cause of abnormal reaction of the patient, or of later complication, without mention of misadventure at the time of the procedure; Z79.84 Long term (current) use of oral hypoglycemic drugs; Z79.899 Other long term (current) drug therapy
CPT/HCPCS: 36415; 36416; 62270; 80048; 83036; 83735; 85025; 85027; 85610; 87811; C1713; C9113; J0692; J1100; J1170; J1815; J2001; J2270; J2272; J2405; J2704; J3010; J3370; J3490; J7050; Q9966; U0002

== ENCOUNTER 2022-08-26 08:45 | Outpatient (CLI) | payer BC | END 2022-08-26 08:46 | disposition home or self-care (01) | LOC: PET 08:45 | PROVIDERS: ATTEND Internal Medicine | DX: C79.51 Secondary malignant neoplasm of bone (principal); C74.90 Malignant neoplasm of unspecified part of unspecified adrenal gland | CPT/HCPCS: 78815; A9552 ==